=== PATIENT | male | born 1980 | race Caucasian/White ===

== ENCOUNTER 2021-01-04 02:37 | Inpatient (IN) | payer BC, OTHER ==
[2021-01-04 02:57] VITALS: BMI 24.2
[2021-01-04] MEDS ORDERED: ACETAMINOPHEN 1000 MG/100 ML VIAL (NON FORMULARY) IVPB ONE ×2 (03:09→13:32)
[2021-01-04] MEDS ORDERED: FAMOTIDINE 20 MG/50 ML IVPB 20 MG/50 ML MG IVPB ONE ×2 (03:10→03:56)
[2021-01-04] MEDS ORDERED: SODIUM CHLORIDE 1,000 ML IV SCH ×2 (03:15→14:43)
[2021-01-04] MEDS ORDERED: ONDANSETRON 4 MG/2 ML VIAL IVPUSH ONE (03:19)
[2021-01-04] MEDS ORDERED: ACETAMINOPHEN INJECTION 100 ML IVPB ONE (03:55)
[2021-01-04 05:43] LABS: CHLORIDE 101 mmol/L (98-107); POTASSIUM 3.1 mmol/L (3.5-5.1); SODIUM 139 mmol/L (136-145)
[2021-01-04 05:45] LABS: ALBUMIN 4.6 g/dl (3.4-5.0); ANION GAP 7 MMOL/L (8-16); BLOOD UREA NITROGEN 24.9 mg/dL (7-18); CALCIUM 9.3 mg/dL (8.5-10.1); CO2 31 mmol/L (21-32); LIPASE 73 U/L (73-393)
[2021-01-04 05:46] LABS: GLUCOSE,RANDOM 156 mg/dL (74-106)
[2021-01-04 05:48] LABS: CREATININE 1.5 mg/dL (0.55-1.3); SGOT/AST 20 U/L (15-37); SGPT/ALT 40 U/L (13-61)
[2021-01-04 05:50] LABS: BILIRUBIN,TOTAL 0.9 mg/dL (0.2-1); TOT PROT 8.1 g/dl (6.4-8.2)
[2021-01-04 05:51] LABS: ALK PHOS 75 U/L (45-117)
[2021-01-04 06:11] LABS: PH,URINE >= 9.0 (5.0-8.0); URINE APPEARANCE CLOUDY; URINE BILIRUBIN NEGATIVE (NEGATIVE); URINE COLOR YELLOW; URINE GLUCOSE (UA) TRACE (NEGATIVE); URINE KETONE NEGATIVE (NEGATIVE); URINE LEUK ESTERASE NEGATIVE (NEGATIVE); URINE NITRITE NEGATIVE (NEGATIVE); URINE PROTEIN NEGATIVE (NEGATIVE); URINE UROBILINOGEN 0.2 mg/dL (0.2-1.0)
[2021-01-04] MEDS ORDERED: SUCRALFATE 1 GM TABLET (FP) PO ONE (06:22)
[2021-01-04] MEDS ORDERED: LACTATED RINGERS SOLUTION 1000 ML INFUS.BAG IV ONE (06:37)
[2021-01-04 07:57] LABS: BASO % 0.1 % (0-2.0); HEMATOCRIT 45.6 % (35.4-49); HEMOGLOBIN 16.1 GM/dL (11.7-16.9); LYMPH % 1.7 % (8-40); MCHC 35.3 g/dl (32.0-35.9); MEAN CELL VOLUME 79.5 fl (80-96); MEAN PLT VOLUME 9.1 fl (7.5-11.1); MONO % 5.1 % (3.8-10.2); NEUT % 93.1 % (42.8-82.8); PLATELET COUNT 159 K/MM3 (134-434); RBC 5.74 M/mm3 (4.00-5.60); RDW 13.6 % (11.9-15.9); WHITE BLOOD COUNT 9.8 K/mm3 (4.0-10.0)
[2021-01-04 08:11] LABS: EPI CELLS 8 /uL (0-25.1); HYALINE CASTS 1 /uL (0-3.1); URINE BACTERIA 25 /uL (0-1359); URINE RBC 6 /uL (0-23.9); URINE WBC 1 /uL (0-25.8)
[2021-01-04 09:11] LABS: ANISOCYTOSIS 0; MACROCYTOSIS 0; PLATELET ESTIMATE DECREASED
[2021-01-04] MEDS ORDERED: CEFTRIAXONE 1,000 MG in DEXTROSE 5%-WATER - 50 ML IVPB ONE (09:46)
[2021-01-04] MEDS ORDERED: CEFTRIAXONE 1 GM/50 ML BAG ONE (10:20)
[2021-01-04] MEDS ORDERED: ONDANSETRON 4 MG/2 ML VIAL IVPUSH PRN ×2 (11:57→14:43)
[2021-01-04] MEDS ORDERED: LACTATED RINGERS SOLUTION 1,000 ML IV SCH ×2 (12:00→14:43)
[2021-01-04] MEDS ORDERED: MIDAZOLAM HCL 2 MG/2 ML SINGLE DOSE VIAL ONE (12:05)
[2021-01-04] MEDS ORDERED: PROPOFOL 20 ML ONE ×2 (12:05)
[2021-01-04] MEDS ORDERED: ROCURONIUM BROMIDE 50 MG/5 ML SYRINGE ONE (12:06)
[2021-01-04] MEDS ORDERED: BENZOIN/ALOE VERA/STORAX/TOLU 58 ML BOTTLE ONE (13:01)
[2021-01-04] MEDS ORDERED: NEOSTIGMINE METHYLSULFATE 0.5 MG/ML - 10 ML MDV ONE (13:11)
[2021-01-04] MEDS ORDERED: DEXAMETHASONE SOD PHOSPHATE 4 MG/1 ML VIAL ONE (13:12)
[2021-01-04] MEDS ORDERED: GLYCOPYRROLATE 0.2 MG/1 ML VIAL ONE (13:12)
[2021-01-04] MEDS ORDERED: LIDOCAINE HCL/PF 2% SDV 5ML VIAL ONE (13:12)
[2021-01-04] MEDS ORDERED: BUPIVACAINE HCL/PF 0.5% (5MG/ML) 10 ML VIAL IJ ONE (13:16)
[2021-01-04] MEDS ORDERED: morphine SULFATE 4 MG/ML VIAL IVPUSH PRN (13:35)
[2021-01-04] MEDS ORDERED: oxyCODONE HCL 5 MG TABLET PO PRN (13:45)
[2021-01-04] MEDS ORDERED: ACETAMINOPHEN 325 MG TABLET (FP) PO PRN (13:45)
[2021-01-04] MEDS ORDERED: FUROSEMIDE 40 MG/4 ML INJECTABLE VIAL IVPUSH ONE ×4 (14:00→16:00)
[2021-01-04] MEDS ORDERED: FUROSEMIDE 40 MG/4 ML INJECTABLE VIAL ONE (14:02)
[2021-01-04] MEDS: KCL 10 MEQ IVPB 10 MEQ/100 ML INFUS.BAG IVPB SCH ×2 (20:10→22:25)
[2021-01-05] MEDS: KCL 10 MEQ IVPB 10 MEQ/100 ML INFUS.BAG IVPB SCH ×3 (00:40→11:43)
[2021-01-05 07:32] LABS: HEMATOCRIT 44.1 % (35.4-49); HEMOGLOBIN 15.4 GM/dL (11.7-16.9); MCH 28.4 pg (25.7-33.7); MCHC 34.9 g/dl (32.0-35.9); MEAN CELL VOLUME 81.4 fl (80-96); MEAN PLT VOLUME 9.6 fl (7.5-11.1); PLATELET COUNT 140 K/MM3 (134-434); RBC 5.42 M/mm3 (4.00-5.60); RDW 13.8 % (11.9-15.9)
[2021-01-05 08:04] LABS: BLOOD UREA NITROGEN 27.9 mg/dL (7-18)
[2021-01-05 08:08] LABS: CREATININE 1.5 mg/dL (0.55-1.3)
[2021-01-05 08:31] LABS: POTASSIUM 3.4 mmol/L (3.5-5.1)
[2021-01-05 09:24] LABS: ALBUMIN 3.4 g/dl (3.4-5.0)
[2021-01-05] MEDS: ACETAMINOPHEN 325 MG TABLET (FP) PO SCH ×3 (11:44→22:50)
[2021-01-05] MEDS ORDERED: POTASSIUM CHLORIDE TABS 20 MEQ TABLET.ER (FP) PO ONE (12:15)
[2021-01-05] MEDS: LACTATED RINGERS SOLUTION 1,000 ML/1,000 ML INFUS.BAG IV SCH ×2 (17:50→22:59)
[2021-01-06] MEDS ORDERED: oxyCODONE HCL 5 MG TABLET PO PRN (01:25)
[2021-01-06] MEDS ORDERED: ACETAMINOPHEN 1000 MG/100 ML VIAL (NON FORMULARY) IVPB ONE (01:25)
[2021-01-06] MEDS: ACETAMINOPHEN 500 MG TABLET (FP) PO SCH ×2 (07:07→12:20)
[2021-01-06 07:46] LABS: HEMATOCRIT 38.9 % (35.4-49); HEMOGLOBIN 13.3 GM/dL (11.7-16.9); MCH 27.9 pg (25.7-33.7); MCHC 34.3 g/dl (32.0-35.9); MEAN CELL VOLUME 81.2 fl (80-96); MEAN PLT VOLUME 9.4 fl (7.5-11.1); PLATELET COUNT 119 K/MM3 (134-434); RBC 4.79 M/mm3 (4.00-5.60); RDW 13.3 % (11.9-15.9); WHITE BLOOD COUNT 6.1 K/mm3 (4.0-10.0)
[2021-01-06 08:12] LABS: POTASSIUM 3.5 mmol/L (3.5-5.1)
[2021-01-06 08:16] LABS: CALCIUM 8.1 mg/dL (8.5-10.1)
[2021-01-06 08:17] LABS: BLOOD UREA NITROGEN 17.9 mg/dL (7-18); MAGNESIUM 2.1 mg/dL (1.8-2.4)
[2021-01-06 08:20] LABS: CREATININE 1.1 mg/dL (0.55-1.3)
[2021-01-06 08:21] LABS: BILIRUBIN,TOTAL 1.9 mg/dL (0.2-1)
[2021-01-06 08:29] LABS: TOT PROT 5.6 g/dl (6.4-8.2)
[2021-01-06 14:24] VITALS: BP 159/95; PULSE 108; TEMP 99.6
== END 2021-01-06 15:57 | disposition home or self-care (01) | DRG 341 ==
LOC: JER 02:37 → JERBED 09:52 → JICU 18:16 → J7W 01-05 21:59
PROVIDERS: ADMIT Internal Medicine; ATTEND Internal Medicine
PROC: 0DTJ4ZZ Resection of Appendix, Percutaneous Endoscopic Approach (ICD-10-PCS; principal; 2021-01-04 11:00)
DX: K35.80 Unspecified acute appendicitis (principal); J81.0 Acute pulmonary edema; J95.89 Other postprocedural complications and disorders of respiratory system, not elsewhere classified; R11.2 Nausea with vomiting, unspecified; R09.02 Hypoxemia
CPT/HCPCS: 36415; 71045-TC-FY; 74177-TC; 80048; 80053; 81003; 82040; 82728; 83605; 83690; 83735; 84484; 85025; 85027; 87086; 93005; 93010; 94660; 94760; 99285-25; C9803; J0131; Q9967; U0003